=== PATIENT | male | born 1980 | race Caucasian/White ===

== ENCOUNTER 2017-07-08 19:40 | Emergency (ER) | payer SELFPAY ==
[~2017-07-08] VITALS: Ht 193 cm; Wt 97.2 kg
[~2017-07-08 19:40] MED LIST: NOHOMEMEDS
[2017-07-08] MEDS ORDERED: MOTRIN800 MG PO (20:37)
[2017-07-08] MEDS ORDERED: LIDOCAINE20 MG/1 M5 PO (20:37)
[2017-07-08] MEDS ORDERED: CLINDAMYCIN HC300 MG PO (20:37)
[2017-07-08] MEDS ORDERED: ULTRACET1 TABLET PO (20:40)
[2017-07-08 20:54] VITALS: BP 112/68
== END 2017-07-08 20:57 | disposition home or self-care (01) ==
LOC: EME 19:40
DX: K02.9 Dental caries, unspecified (principal); K04.7 Periapical abscess without sinus; Z88.0 Allergy status to penicillin
CPT/HCPCS: 99281; 99284